=== PATIENT | female | born 1990 | race Two or more races ===

== ENCOUNTER → 2018-12-03 | Outpatient (CLI) | payer OTHER ==
[~2018-12-03] MED LIST: ATARAX25 MG PO; ZITHROMAX500 MG PO
== END | disposition home or self-care (01) ==
LOC: PRENATAL 10:55
DX: O34.211 Maternal care for low transverse scar from previous cesarean delivery (principal); O99.89 Other specified diseases and conditions complicating pregnancy, childbirth and the puerperium

== ENCOUNTER → 2019-02-12 | Outpatient (CLI) | payer OTHER | END | disposition home or self-care (01) | LOC: PRENATAL 10:57 | DX: O99.89 Other specified diseases and conditions complicating pregnancy, childbirth and the puerperium (principal); O34.211 Maternal care for low transverse scar from previous cesarean delivery ==

== ENCOUNTER → 2019-04-22 | Outpatient (CLI) | payer OTHER | END | disposition home or self-care (01) | LOC: PRENATAL 08:23 | DX: O26.843 Uterine size-date discrepancy, third trimester (principal); O99.283 Endocrine, nutritional and metabolic diseases complicating pregnancy, third trimester; O99.89 Other specified diseases and conditions complicating pregnancy, childbirth and the puerperium ==

== ENCOUNTER 2019-05-21 16:12 | Inpatient (IN) | payer OTHER ==
[~2019-05-21] VITALS: Ht 167.6 cm; Wt 3.6 kg
[2019-05-25] MEDS ORDERED: SYNTHROID100 MCG PO (14:47)
[2019-05-31] MEDS ORDERED: PRENATAL PLUS1 EAC1 PO (09:30)
[2019-05-31] MEDS ORDERED: ROBITUSSIN15 MG PO (09:32)
== END 2019-06-03 11:24 | disposition home or self-care (01) | DRG 788 ==
LOC: OB/GYN 05-31 07:00 → O/R 05-31 08:58 → OB/GYN 05-31 13:15
PROVIDERS: ADMIT Obstetrics & Gynecology
PROC: 4A1HXCZ Monitoring of Products of Conception, Cardiac Rate, External Approach (ICD-10-PCS; 2019-05-31)
PROC: 10D00Z1 Extraction of Products of Conception, Low, Open Approach (ICD-10-PCS; principal; 2019-05-31 07:00)
DX: O82 Encounter for cesarean delivery without indication (principal); O32.8XX0 Maternal care for other malpresentation of fetus, not applicable or unspecified; Z3A.39 39 weeks gestation of pregnancy; Z37.0 Single live birth